=== PATIENT | female | born 1975 | race Caucasian/White ===

== ENCOUNTER → 2018-11-09 | Outpatient (CLI) | payer OTHER ==
--- NOTE | 2018-11-09 12:30 | RADIOLOGY REPORT (SQ) ---
EXAM DESCRIPTION: VENOUS BILATERAL LOWER COMPLETED DATE/TIME: 11/09/2018 12:09 pm REASON FOR STUDY: SWELLING R22.43 LOCALIZED SWELLING, MASS AND LUMP, LOWER LIMB, BILATE COMPARISON: None. TECHNIQUE: Dynamic and static abebe scale and color images acquired of both lower extremity venous sy stems. Selected spectral images acquired with additional compression and augmentation maneuvers. Imag es stored on PACS. LIMITATIONS: None. FINDINGS: RIGHT LEG COMMON FEMORAL AND FEMORAL: Normal phasicity, compression and augmentation. No visualized echogenic m aterial on abebe scale. No defects on color images. POPLITEAL: Normal compression and augmentation. No visualized echogenic material on abebe scale. No de fects on color images. CALF VESSELS: Normal compression and augmentation. No visualized echogenic material on abebe scale. No defects on color image. GSV AND SSV: Normal compression. No visualized echogenic material on abebe scale. No defects on color images. ANY DEEP VENOUS INSUFFICIENCY: Not evaluated. ANY EVIDENCE OF POPLITEAL CYST: No. OTHER: No other significant finding. LEFT LEG COMMON FEMORAL AND FEMORAL: Normal phasicity, compression and augmentation. No visualized echogenic m aterial on abebe scale. No defects on color images. POPLITEAL: Normal compression and augmentation. No visualized echogenic material on abebe scale. No de fects on color images. CALF VESSELS: Normal compression and augmentation. No visualized echogenic material on abebe scale. No defects on color images. GSV AND SSV: Normal compression. No visualized echogenic material on abebe scale. No defects on color images. ANY DEEP VENOUS INSUFFICIENCY: Not evaluated. ANY EVIDENCE POPLITEAL CYST: No. OTHER: No other significant finding. IMPRESSION: NO EVIDENCE DVT OR SVT IN EITHER LEG. TECHNICAL DOCUMENTATION: JOB ID: [id number] [employer]- All Rights Reserved Reading location - IP/workstation name: [email or web address]
== END ==
LOC: SP 10:43
PROVIDERS: ATTEND Internal Medicine
DX: R22.43 Localized swelling, mass and lump, lower limb, bilateral (principal)
CPT/HCPCS: 93970

== ENCOUNTER 2019-12-06 20:52 | Emergency (ER) | payer OTHER ==
[2019-12-06] MEDS ORDERED: DEXAMETHASONE SOD PHOS INJ 10 MG/1 ML VIAL IM ONE (21:55)
--- NOTE | 2019-12-06 22:00 | ER Document Report ---
ED GI/ - General Chief Complaint: Back Pain Stated Complaint: LOWER BACK PAIN Time Seen by Provider: 12/06/19 21:29 Primary Care Provider: [facility] [Provider Group] - Follow up as needed REBEKAH ALMARAZ MD [Primary Care Provider] - Follow up as needed Mode of Arrival: Ambulatory Information source: Patient Notes: 44-year-old female presented to ED for complaint of right flank and lower abdominal pain going down to her thighs. She is alert oriented respirations regular and unlabored speaking in full sentences. She states she has spoke with her doctor Dr. Almaraz who gave her some Flomax and some pain medicine as well as antibiotics for this pain. She states she came to the emergency room because she was still having pain. She is alert oriented respirations regular nonlabored speaking in full sentences walks with even steady gait. She does have some signs and symptoms of sciatica as well as flank pain. We will get PT completed give her back instructions steroid injection and instructions on moving more as possible to increase flexibility. Patient has been agreeable with this plan so far. TRAVEL OUTSIDE OF THE [place] IN LAST 30 DAYS: No - HPI Patient complains to provider of: Flank pain, Other - Right low back pain Onset: Other - Several days Timing/Duration: Gradual Quality of pain: Achy, Sharp Severity at maximum: Moderate Severity in ED: Moderate Pain Level: 2 Location: Right flank, Low back Associated symptoms: None Exacerbated by: Movement, Walking Relieved by: Denies Similar symptoms previously: Yes Recently seen / treated by doctor: Yes - Related Data Allergies/Adverse Reactions: nickel [Nickel] Allergy (Severe, Verified 03/28/19 16:40) rash Past Medical History - General Information source: Patient - Social History Smoking Status: Never Smoker Frequency of alcohol use: Social Family History: Reviewed & Not Pertinent Patient has homicidal ideation: No - Past Medical History Cardiac Medical History: Reports: Hx Hypertension - just c Pulmonary Medical History: Reports: Hx Asthma EENT Medical History: Reports: None Neurological Medical History: Reports: None Endocrine Medical History: Reports: None Renal/ Medical History: Reports: None Malignancy Medical History: Reports: None GI Medical History: Reports: None Musculoskeletal Medical History: Reports None Skin Medical History: Reports None Psychiatric Medical History: Reports: None Traumatic Medical History: Reports: None Infectious Medical History: Reports: None Surgical Hx: Negative Past Surgical History: Reports: Hx Tubal Ligation - Immunizations Hx Diphtheria, Pertussis, Tetanus Vaccination: No Review of Systems - Review of Systems Constitutional: No symptoms reported EENT: No symptoms reported Cardiovascular: No symptoms reported Respiratory: No symptoms reported Gastrointestinal: No symptoms reported Genitourinary: Flank pain Female Genitourinary: No symptoms reported Musculoskeletal: Back pain Skin: No symptoms reported Hematologic/Lymphatic: No symptoms reported Neurological/Psychological: No symptoms reported -: Yes All other systems reviewed and negative Physical Exam - Vital signs Vitals: Temp Pulse Resp BP Pulse Ox 98.4 F 118 H 18 136/100 H 96 12/06/19 20:59 12/06/19 20:59 12/06/19 20:59 12/06/19 20:59 12/06/19 20:59 Interpretation: Normal - General General appearance: Appears well, Alert - HEENT Head: Normocephalic, Atraumatic Eyes: Normal Pupils: PERRL - Respiratory Respiratory status: No respiratory distress Chest status: Nontender Breath sounds: Normal Chest palpation: Normal - Cardiovascular Rhythm: Regular Heart sounds: Normal auscultation Murmur: No - Abdominal Inspection: Normal Distension: No distension Bowel sounds: Normal Tenderness: Nontender Organomegaly: No organomegaly - Back Back: Normal, Tender - Low back more to the right than the left no vertebral tenderness, CVA tenderness - Right. No: Vertebra tenderness - Extremities General upper extremity: Normal inspection, Nontender, Normal color, Normal ROM, Normal temperature General lower extremity: Normal inspection, Nontender, Normal color, Normal ROM, Normal temperature, Normal weight bearing. No: Judi's sign - Neurological Neuro grossly intact: Yes Cognition: Normal Orientation: AAOx4 Byers Coma Scale Eye Opening: Spontaneous Byers Coma Scale Verbal: Oriented Henri Coma Scale Motor: Obeys Commands Byers Coma Scale Total: 15 Speech: Normal Motor strength normal: LUE, RUE, LLE, RLE Sensory: Normal - Psychological Associated symptoms: Normal affect, Normal mood - Skin Skin Temperature: Warm Skin Moisture: Dry Skin Color: Normal Course - Re-evaluation Re-evalutation: 12/07/19 04:26 CT and ultrasound results discussed with patient written report of CT and ultrasound given to patient. Patient was instructed to please follow-up with her primary care doctor concerning the hypodense area to the pancreas and she was supposed to follow-up with women's health care for the 4.8 cm right ovarian cyst and the smaller left ovarian cyst. There is no ovarian torsion at this time. She states she would follow-up tomorrow to get further testing scheduled. - Vital Signs Vital signs: Temp Pulse Resp BP Pulse Ox 98.4 F 123 H 14 144/87 H 99 12/07/19 01:12/07/19 01:12/07/19 01:12/07/19 01:12/07/19 01:09 - Diagnostic Test Radiology reviewed: Image reviewed, Reports reviewed Discharge - Discharge Clinical Impression: Large right ovarian cyst, Mild left ovarian cyst Condition: Stable Disposition: HOME, SELF-CARE Additional Instructions: Ovarian Cyst Your examination shows the presence of an ovarian cyst. This is a ball of fluid attached to the ovary. Ovarian cysts in women of child-bearing age are usually innocent. However, the cyst may cause pain when it grows or bursts. An innocent ovarian cyst will usually go away by itself. When the cyst becomes painful, you should rest. Pain medication may be required. Some women find a hot water bottle soothing. The pain usually resolves within one or two days. After menopause, an ovarian cyst may mean a tumor, and requires more aggressive evaluation -- usually surgery is recommended to remove or biopsy the cyst. A very large cyst requires evaluation at any age. Most cysts (even the innocent ones) require follow-up examination. Call the doctor or return at any time if the pain increases significantly, if you become faint, or if you experience vaginal bleeding. You have a large right ovarian cyst that should be followed up promptly and a small left ovarian cyst that does not need followed up at this time. You also have a hypodense area on your pancreas that needs to be followed up promptly to determine its origin. Please call your primary care doctor and follow-up as we discussed concerning the pancreatic mass. Oral Narcotic Medication You have been given a [employer] dispense pack for pain control. This medication is a narcotic. It's best taken with food, as nausea can result if taken on an empty stomach. Don't operate machinery or drive within six hours of taking this medication. Do not combine this medicine with alcohol, or with any medication which can cause sedation (such as cold tablets or sleeping pills) unless you get permission from the physician. Narcotics tend to cause constipation. If possible, drink plenty of fluids and eat a diet high in fiber and fruits. FOLLOW-UP CARE: If you have been referred to a physician for follow-up care, call the physicians office for an appointment as you were instructed or within the next two days. If you experience worsening or a significant change in your symptoms, notify the physician immediately or return to the Emergency Department at any time for re-evaluation. Forms: Elevated Blood Pressure Referrals: REBEKAH ALMARAZ MD [Primary Care Provider] - Follow up as needed [facility] [Provider Group] - Follow up as needed
--- NOTE | 2019-12-06 22:30 | RADIOLOGY REPORT (SQ) ---
EXAM DESCRIPTION: CT ABDOMEN PELVIS WITHOUT IV CONTRAST COMPLETED DATE/TME: 12/06/2019 21:55 CLINICAL HISTORY: 44 years, Female, Right flank, RLQ pain Comparison: None TECHNIQUE: Contiguous axial CT images of the abdomen and pelvis were obtained. Sagittal and coronal reformats were reviewed. This exam was performed according to our departmental dose-optimization program, which includes automated exposure control, adjustment of the mA and/or kV according to patient size and/or use of iterative reconstruction technique. FINDINGS: Lung bases: Clear. Liver:Diffuse low-attenuation throughout the liver consistent with hepatocellular disease/fatty infiltration. No focal liver lesion seen. Gallbladder:Unremarkable. No gallstones. No gallbladder wall thickening or pericholecystic fluid. Spleen:Unremarkable Pancreas: The ill-defined hypodensity in the tail the pancreas measuring 1.6 cm. No pancreatic duct dilatation Adrenal glands:Within normal limits. Kidneys/ureters:Within normal limits Stomach/small bowel/colon: Stomach is unremarkable. Small bowel is unremarkable. Colon is unremarkable. Appendix: Appendix not seen with certainty. However, no inflammatory changes or fluid seen in the pericecal region and right lower quadrant. Peritoneum: No free fluid. Vascular structures: within normal limits Lymph nodes: No abnormal lymph nodes. Bladder:Unremarkable. Pelvic organs: Simple appearing right adnexal cyst measuring 4.8 x 4.4 cm. Bones: No acute osseous abnormality. Soft tissues: Unremarkable.. IMPRESSION: Ill-defined hypodensity in the tail the pancreas measuring 1.6 cm. Recommend further evaluation with CT or MR pancreatic mass protocol when clinically feasible. 4.8 cm probably benign right ovarian cyst. Recommend follow-up pelvic US in 6-12 weeks. Reference: J Am Talita Radiol 2013;10:675-681 Enlarged liver with diffuse fatty infiltration.
--- NOTE | 2019-12-06 23:53 | RADIOLOGY REPORT (SQ) ---
EXAM DESCRIPTION: US PELVIS TRANSVAGINAL COMPLETED DATE/TME: 12/06/2019 22:48 CLINICAL HISTORY: 44 years Female Large right ovarian cyst COMPARISON: None. TECHNIQUE: Transvaginal duplex imaging performed to evaluate the pelvis. FINDINGS: Uterus measures 8 x 4.2 cm. Cervix is closed and measures 2.5 cm. Endometrial stripe 8 mm. There is a large simple appearing right ovarian cyst measuring 4 x 6 x 5 cm. Normal right ovarian blood flow is noted. Left ovary measures 2.5 x 1.4 cm with a 2.2 x 1 cm cyst. Normal blood flow. Examination is limited by body habitus and bowel gas. IMPRESSION: Large simple appearing right ovarian cyst. Follow-up ultrasound is recommended annually. Small left ovarian cyst. This is almost certainly benign and no follow-up is recommended
[2019-12-07] MEDS ORDERED: HYDROCODONE/ACETAMINOPHEN 5-325 MG (6 TAB/ER DISP) PO PRN (00:34)
[2019-12-07 01:17] VITALS: BP 144/87
== END 2019-12-07 01:17 | disposition home or self-care (01) ==
LOC: ER 20:52
DX: N83.201 Unspecified ovarian cyst, right side (principal); N83.202 Unspecified ovarian cyst, left side; M54.9 Dorsalgia, unspecified; M54.5 Low back pain; R10.9 Unspecified abdominal pain; R10.30 Lower abdominal pain, unspecified; M79.652 Pain in left thigh; M79.651 Pain in right thigh; I10 Essential (primary) hypertension; J45.909 Unspecified asthma, uncomplicated
CPT/HCPCS: 99284; 96372; 76830; 93976; 74176; J1100

== ENCOUNTER → 2019-12-14 | Outpatient (CLI) | payer OTHER ==
--- NOTE | 2019-12-15 08:55 | RADIOLOGY REPORT (SQ) ---
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 CONTRAST TYPE AND DOSE: 20 mL Prohance. RENAL FUNCTION: Not indicated. ACR Type II contrast agent associated with few, if any, unconfounded cases of NSF LIMITATIONS: None. FINDINGS: LIVER: Normal size. No masses. No dilated ducts. CBD normal. SPLEEN: Normal size. No focal lesions. PANCREAS: Within the tail of the pancreas, there is a 1.7 x 1.3 x 2.0 cm nonenhancing T1 hypointense, T2 hyperintense focus demonstrating few thin septations. GALLBLADDER: No masses. No stones. No gallbladder wall thickening or pericholecystic fluid. ADRENAL GLANDS: No significant masses or asymmetry. RIGHT KIDNEY AND URETER: No masses. No hydronephrosis. LEFT KIDNEY AND URETER: No masses. No hydronephrosis. AORTA AND VESSELS: No aneurysm. No dissection. Renal arteries, SMA, celiac without stenosis. RETROPERITONEUM: No retroperitoneal adenopathy, hemorrhage or masses. BOWEL: No visualized masses. No inflammation. No significant dilatation. ABDOMINAL WALL AND PERITONEUM: No hernias. No free fluid. BONES: No acute or significant findings. OTHER: No other significant finding. IMPRESSION: 1.7 x 1.3 x 2.0 cm cystic mass involving the tail of the pancreas. If known history of pancreatitis, this may represent a pancreatic pseudocyst. Given patient demographics, differential c onsiderations include mucinous cystic neoplasm, intraductal papillary mucinous neoplasm, less likely serous cystadenoma or neuroendocrine tumor. TECHNICAL DOCUMENTATION: JOB ID: [id number] [employer]- All Rights Reserved Reading location - IP/workstation name: [email or web address]
== END ==
LOC: RAD 18:19
PROVIDERS: ATTEND Internal Medicine
DX: D37.9 Neoplasm of uncertain behavior of digestive organ, unspecified (principal)
CPT/HCPCS: 82565; 74183; A9576